=== PATIENT | female | born 1995 | race Caucasian/White ===

== ENCOUNTER 2018-09-02 15:15 | Emergency (ER) | payer OTHER, MEDICAID, SELFPAY ==
[2018-09-02 15:27] VITALS: BP 131/79; PULSE 73; RESP 16; TEMP 37.1; O2SAT 97; BMI 23.6
--- NOTE | 2018-09-02 15:47 | ED.CHESTPAIN ---
HPI - Chest Pain <MARIAMA Puente - Last Filed: 09/02/18 22:28> General Chief Complaint: Chest Pain Stated Complaint: CHEST PAIN Time Seen by Provider: 09/02/18 15:47 Source: patient Mode of arrival: ambulatory Limitations: no limitations History of Present Illness HPI narrative: 22-year-old female with history of anxiety and is a nonsmoker here for complaint of chest pain on and off over the past several months. She denies any trauma to the area. She denies any strenuous activity. She denies any stressors or relievers of her pain. She is recently diagnosed with anxiety and was placed on citalopram a few days ago. She denies any nausea vomiting. No fevers or chills. She denies any other concerns or complaints at this time. She is ambulatory to the emergency shannon ZACARIAS complaint: chest pain Related Data Home Medications Medication Instructions Recorded Confirmed B [id number] acid-Zn [Yaima B #0 09/06/17 Strong] citalopram 20 mg PO DAILY 09/02/18 09/02/18 Previous Rx's Medication Instructions Recorded erythromycin with ethanol [Erygel] 1 mustapha TP SEE INSTRUCTIONS #30 gm 09/06/17 tretinoin [Retin-A] 1 mustapha TOPICAL SEE INSTRUCTIONS #20 09/06/17 gm Allergies Allergy/AdvReac Type Severity Reaction Status Date / Time No Known Drug Allergies Allergy Verified 09/02/18 15:27 Review of Systems <MARIAMA Puente - Last Filed: 09/02/18 22:28> Constitutional Denies chills, Denies fatigue, Denies fever(s), Denies lethargy and Denies weakness Eyes Denies change in vision, Denies eye discharge, Denies irritation and Denies loss of vision ENT Ears, Nose, Mouth, and Throat: Denies change in voice, Denies neck pain and Denies sore throat Cardiovascular Reports chest pain, Denies dyspnea and Denies dyspnea on exertion Respiratory Denies cough, Denies dyspnea, Denies dyspnea on exertion and Denies wheezing Gastrointestinal Gastrointestinal: Denies abdominal pain, Denies change in bowel habits, Denies diarrhea, Denies nausea and Denies vomiting Genitourinary Denies hematuria, Denies flank pain, Denies urinary incontinence and Denies urinary urgency Musculoskeletal Denies neck pain Integumentary/Breasts Denies pruritus, Denies erythema, Denies rash and Denies wounds Neurologic Denies confusion, Denies loss of vision and Denies weakness Psychiatric Denies anxiety, Denies confusion, Denies depression, Denies homicidal ideation and Denies suicidal ideation Endocrine Denies fatigue and Denies flushing Hematologic/Lymphatic Denies easy bruising Allergic/Immunologic Denies wheezing Exam <MARIAMA Puente - Last Filed: 09/02/18 22:28> Initial Vital Signs Initial Vital Signs: Vital Signs Temperature 98.7 F 09/02/18 15:27 Pulse Rate 73 09/02/18 15:27 Respiratory Rate 16 09/02/18 15:27 Blood Pressure 131/79 09/02/18 15:27 Pulse Oximetry 97 09/02/18 15:27 Const General: cooperative and well developed Nutritional Appearance: well nourished Orientation: alert, awake, oriented x3 and not confused HENMA Mouth: oral mucosae normal, oropharynx normal and moist mucous membranes Eyes Conjunctivae: conjunctivae normal Sclera: sclerae normal Pupils: PERRL EOM: EOM intact bilaterally Chest Other: Pain on palpation to the right sternal border area. No signs of trauma. No ecchymosis. No deformities. Resp Effort & Inspection: normal respiratory effort, able to speak in complete sentences, no respiratory distress and no use of accessory muscles Auscultation: clear to auscultation bilaterally, no rales, no rhonchi and no wheezes Cardio Rate: regular rate Rhythm: regular rhythm Heart Sounds: no click, no gallops, no murmurs and no rubs Pulses: normal peripheral pulses Skin General: no rashes or lesions noted, No jaundice and No petechiae Neuro General: alert, oriented x3, gait normal and no focal motor deficits Speech: speech normal <Shruti Donaldson DO - Last Filed: 09/03/18 08:24> Initial Vital Signs Initial Vital Signs: Vital Signs Temperature 98.7 F 09/02/18 15:27 Pulse Rate 73 09/02/18 15:27 Respiratory Rate 16 09/02/18 15:27 Blood Pressure 131/79 09/02/18 15:27 Pulse Oximetry 97 09/02/18 15:27 Course <MARIAMA Puente - Last Filed: 09/02/18 22:28> Orders Ordered: ED Orders 09/02/18 15:27 EKG-12 Lead Stat 09/02/18 16:15 XR chest 1V Stat 09/02/18 16:30 Complete Blood Count AUTO DIFF Stat Comprehensive Metabolic Panel Stat Troponin & CK Cardiac Panel Stat Vital Signs - 8 hr 18 15:27 18 18:06 09/02/18 20:19 Temperature 98.7 F Pulse Rate 73 71 104 H Respiratory Rate 16 16 13 Blood Pressure 131/79 112/66 Blood Pressure [Right Arm] 113/68 Pulse Oximetry 97 99 98 <Shruti Donaldson DO - Last Filed: 09/03/18 08:24> Orders Ordered: ED Orders 09/02/18 15:27 EKG-12 Lead Stat 09/02/18 16:15 XR chest 1V Stat 09/02/18 16:30 Complete Blood Count AUTO DIFF Stat Comprehensive Metabolic Panel Stat Troponin & CK Cardiac Panel Stat Vital Signs - 8 hr 09/02/18 15:27 09/02/18 18:06 09/02/18 20:19 Temperature 98.7 F Pulse Rate 73 71 104 H Respiratory Rate 16 16 13 Blood Pressure 131/79 112/66 Blood Pressure [Right Arm] 113/68 Pulse Oximetry 97 99 98 MDM - Chest Pain <MARIAMA Puente - Last Filed: 09/02/18 22:28> Lab Data Result diagrams: 09/02/18 16:30 09/02/18 16:30 Lab Results 09/02/18 09/02/18 Range/Units 16:30 16:30 WBC 7.7 (4.5-11.0) X10^3/uL RBC 4.51 (4.0-5.2) X10^6/uL Hgb 14.5 (12.0-16.0) g/dL Hct 41.7 (36-46) % MCV 92.4 (80-100) fL MCH 32.1 (26-34) PG MCHC 34.7 (30-36) % RDW 12.2 (11.6-14.8) % Plt Count 269 (150-400) X10^3/uL Neut % (Auto) 61.6 (50-75) % Lymph % (Auto) 27.3 (25-40) % [place] % (Auto) 9.0 (3-14) % Eos % (Auto) 1.4 L (2-4) % Baso % (Auto) 0.7 (0-2) % Neut # (Auto) 4800 (7979-0811) /uL Sodium 143 (137-145) mmol/L Potassium 3.8 (3.4-5.1) mmol/L Chloride 106 (98-107) mmol/L Carbon Dioxide 22 (22-32) mmol/L BUN 12 (7-17) mg/dL Creatinine 0.70 (0.52-1.04) mg/dL Estimated GFR > 60.0 (>60) mL/min BUN/Creatinine Ratio 17.1 (6-22) Glucose 87 (70-100) mg/dL Calcium 9.5 (8.4-10.2) mg/dL Total Bilirubin 0.4 (0.2-1.3) mg/dL AST 31 (14-36) IU/L ALT 28 (9-52) IU/L Alkaline Phosphatase 65 (38-126) U/L Total Creatine Kinase 50 (30-135) U/L CK-MB (CK-2) TNP CK-MB (CK-2) Rel Index TNP Troponin I < 0.012 (0.01-0.034) ng/mL Total Protein 7.5 (6.3-8.2) g/dL Albumin 4.6 (3.5-5.0) g/dL Globulin 2.9 (1.7-4.1) g/dL Albumin/Globulin Ratio 1.6 (1.0-2.8) Point of Care Testing Test Results Negative Urine Dip Bedside Urine Glucose Negative Bedside Urine Bilirubin - Negative Bedside Urine Ketone - Negative Urine Specific [place] 1.015 Bedside Urine Occult Blood - Negative Bedside Urine pH 7.0 Bedside Urine Protein - Negative Bedside Urine Urobilinogen - Negative Bedside Urine Nitrite - Negative Bedside Urine Leukocytes - Negative Esterase Imaging Data Chest x-ray: Radiologist's impression: [address] [address] XRay Report Signed Patient: Nathaly Berrios [facility]#: [id number] : 1995Acct:[id number] Age/Sex: 22 / FDate of Service: 09/02/18 Loc: ED Accession Number: [id number] Procedure: XR chest 1V Ordering Provider: Jose Elias Patel PROCEDURE: XR CHEST 1V INDICATIONS: chest pain on off for last several months TECHNIQUE: One view of the chest was acquired. COMPARISON: None. FINDINGS: Surgical changes and devices: None. Lungs and pleura: No pleural effusions or pneumothorax. Lungs are clear. There is prominence of the pulmonary vasculature bilaterally. Mediastinum: Mediastinal contours appear normal. Heart size is normal. Bones and chest wall: No suspicious bony lesions. Overlying soft tissues appear unremarkable. IMPRESSION: No acute cardiopulmonary disease. Dictated by: Antonio Spencer M.D. on 09/02/2018 at 19:54 Approved by: Antonio Spencer M.D. on 09/02/2018 at 19:55 ECG Data Interpretation: EKG shows normal sinus rhythm with no ST elevation or depression. No ectopy. Ventricular rate of 87. Pr interval of 128. QRS duration of 99. QTC of 406. MDM Narrative Medical decision making narrative: CBC and Chem panel were obtained were unremarkable. EKG shows sinus rhythm with no ST elevation or depression. No ectopy. Chest x-ray was obtained was unremarkable. Cardiac enzymes were negative. Signs and symptoms presents as costochondritis with secondary diagnosis of chest pain secondary to anxiety. Qxeh-cxc-[id number] ibuprofen as needed for any discomfort. Rest area. Follow up with primary care provider. For any worsening symptoms return emergency room. <Shruti Donaldson DO - Last Filed: 09/03/18 08:24> Lab Data Attestation: I reviewed the patient's lab results. Lab Results 09/02/18 09/02/18 Range/Units 16:30 16:30 WBC 7.7 (4.5-11.0) X10^3/uL RBC 4.51 (4.0-5.2) X10^6/uL Hgb 14.5 (12.0-16.0) g/dL Hct 41.7 (36-46) % MCV 92.4 (80-100) fL MCH 32.1 (26-34) PG MCHC 34.7 (30-36) % RDW 12.2 (11.6-14.8) % Plt Count 269 (150-400) X10^3/uL Neut % (Auto) 61.6 (50-75) % Lymph % (Auto) 27.3 (25-40) % [place] % (Auto) 9.0 (3-14) % Eos % (Auto) 1.4 L (2-4) % Baso % (Auto) 0.7 (0-2) % Neut # (Auto) 4800 (3520-6161) /uL Sodium 143 (137-145) mmol/L Potassium 3.8 (3.4-5.1) mmol/L Chloride 106 (98-107) mmol/L Carbon Dioxide 22 (22-32) mmol/L BUN 12 (7-17) mg/dL Creatinine 0.70 (0.52-1.04) mg/dL Estimated GFR > 60.0 (>60) mL/min BUN/Creatinine Ratio 17.1 (6-22) Glucose 87 (70-100) mg/dL Calcium 9.5 (8.4-10.2) mg/dL Total Bilirubin 0.4 (0.2-1.3) mg/dL AST 31 (14-36) IU/L ALT 28 (9-52) IU/L Alkaline Phosphatase 65 (38-126) U/L Total Creatine Kinase 50 (30-135) U/L CK-MB (CK-2) TNP CK-MB (CK-2) Rel Index TNP Troponin I < 0.012 (0.01-0.034) ng/mL Total Protein 7.5 (6.3-8.2) g/dL Albumin 4.6 (3.5-5.0) g/dL Globulin 2.9 (1.7-4.1) g/dL Albumin/Globulin Ratio 1.6 (1.0-2.8) Point of Care Testing Test Results Negative Urine Dip Bedside Urine Glucose Negative Bedside Urine Bilirubin - Negative Bedside Urine Ketone - Negative Urine Specific [place] 1.015 Bedside Urine Occult Blood - Negative Bedside Urine pH 7.0 Bedside Urine Protein - Negative Bedside Urine Urobilinogen - Negative Bedside Urine Nitrite - Negative Bedside Urine Leukocytes - Negative Esterase ECG Data Attestation: I personally reviewed and interpreted this ECG as follows: Prior ECG tracings: not available for review Interpretation: Normal sinus rhythm rate [address] changes or T-wave inversion no prior to compare Discharge Plan Departure Patient Disposition: Home Clinical Impression: Costochondritis Discharge Date/Time: 09/02/18 20:20 Interventions: ED Discharge Assessment Last Done: 09/02/18 20:19 Instructions: DI for Costochondritis Activity Restrictions/Additional Instructions: laboratory results today were unremarkable. She EKG was normal. Chest x-ray was normal. Signs and symptoms presents as costochondritis which is muscle skeletal pain into the chest wall area. Use [id number]-[id number] ibuprofen as needed for any discomfort. Rest area. Gentle range of motion to painful areas of keep muscles loose. Follow up with her primary care provider. Continue taking anxiety medications as anxiety can exacerbate the chest wall pain. for any worsening symptoms return emergency room. Prescriptions: No Action B [id number]-[id number] acid-Zn [Yaima B Strong] 1 EACH tablet Qty: 0 RF: 0 tretinoin [Retin-A] 0.01 % gel 1 mustapha Topical SEE INSTRUCTIONS Qty: 20 RF: 0 erythromycin with ethanol [Erygel] 2 % gel 1 mustapha TP SEE INSTRUCTIONS Qty: 30 RF: 0 citalopram 20 mg Tablet 20 mg PO DAILY RF: 0 Referrals: Suzy Tao PA-C [Primary Care Provider] - <Shruti Donaldson DO - Last Filed: 09/03/18 08:24> Cosign ED Attending Cosignature Attestation: I was immediately available in the department for consultation. Documentation has been reviewed. I agree with assessment and plan.
--- NOTE | 2018-09-02 15:55 | PC.NURSE ---
Pt reports chest pain has been on and off for past few months. Reports pain usually comes after drinking energy drinks but has tried to cut those out. States today Pain started after a cup of coffee while at work and pain has not gone away. Reports at times it radiates across chest into left arm.
--- NOTE | 2018-09-02 16:15 | DI.RAD.S_ITS ---
PROCEDURE: XR CHEST 1V INDICATIONS: chest pain on off for last several months TECHNIQUE: One view of the chest was acquired. COMPARISON: None. FINDINGS: Surgical changes and devices: None. Lungs and pleura: No pleural effusions or pneumothorax. Lungs are clear. There is prominence of the pulmonary vasculature bilaterally. Mediastinum: Mediastinal contours appear normal. Heart size is normal. Bones and chest wall: No suspicious bony lesions. Overlying soft tissues appear unremarkable. IMPRESSION: No acute cardiopulmonary disease. Dictated by: Antonio Spencer M.D. on 09/02/2018 at 19:54 Approved by: Antonio Spencer M.D. on 09/02/2018 at 19:55
[2018-09-02 16:42] LABS: Add Manual Diff / Slide Review NO; Basophils Percent Auto 0.7 % (0-2); Eosinophils Percent Auto 1.4 % (2-4); Hematocrit 41.7 % (36-46); Hemoglobin 14.5 g/dL (12.0-16.0); Lymphocytes Percent Auto 27.3 % (25-40); Mean Corpuscular HGB Conc 34.7 % (30-36); Mean Corpuscular Hemoglobin 32.1 PG (26-34); Mean Corpuscular Volume 92.4 fL (80-100); Neutrophils Absolute Auto 4800 /uL (1500-7000); Neutrophils Percent Auto 61.6 % (50-75); Platelet Count 269 X10^3/uL (150-400); Red Blood Cell Count 4.51 X10^6/uL (4.0-5.2); Red Cell Distribution Width 12.2 % (11.6-14.8); White Blood Cell Count 7.7 X10^3/uL (4.5-11.0)
[2018-09-02 16:52] LABS: Alanine Aminotransferase 28 IU/L (9-52); Albumin 4.6 g/dL (3.5-5.0); Albumin Globulin Ratio 1.6 (1.0-2.8); Alkaline Phosphatase 65 U/L (38-126); Aspartate Aminotransferase 31 IU/L (14-36); BUN Creatinine Ratio 17.1 (6-22); Bilirubin Total 0.4 mg/dL (0.2-1.3); Blood Urea Nitrogen 12 mg/dL (7-17); Calcium 9.5 mg/dL (8.4-10.2); Carbon Dioxide 22 mmol/L (22-32); Chloride 106 mmol/L (98-107); Creatine Kinase 50 U/L (30-135); Estimated Glomerular Filt Rate > 60.0 mL/min (>60); Globulin 2.9 g/dL (1.7-4.1); Glucose 87 mg/dL (70-100); HEMOLYSIS 22 (0-50); Potassium 3.8 mmol/L (3.4-5.1); Sodium 143 mmol/L (137-145); Total Protein 7.5 g/dL (6.3-8.2)
[2018-09-02 17:10] LABS: Troponin I < 0.012 ng/mL (0.01-0.034)
--- NOTE | 2018-09-02 17:22 | ED_ITS ---
HPI - Chest Pain <MARIAMA Puente - Last Filed: 09/02/18 22:28> General Chief Complaint: Chest Pain Stated Complaint: CHEST PAIN Time Seen by Provider: 09/02/18 15:47 Source: patient Mode of arrival: ambulatory Limitations: no limitations History of Present Illness HPI narrative: 22-year-old female with history of anxiety and is a nonsmoker here for complaint of chest pain on and off over the past several months. She denies any trauma to the area. She denies any strenuous activity. She denies any stressors or relievers of her pain. She is recently diagnosed with anxiety and was placed on citalopram a few days ago. She denies any nausea vomiting. No fevers or chills. She denies any other concerns or complaints at this time. She is ambulatory to the emergency shannon [facility] complaint: chest pain Related Data Home Medications Medication Instructions Recorded Confirmed B [id number] acid-Zn [Yaima B #0 09/06/17 Strong] citalopram 20 mg PO DAILY 09/02/18 09/02/18 Previous Rx's Medication Instructions Recorded erythromycin with ethanol [Erygel] 1 mustapha TP SEE INSTRUCTIONS #30 gm 09/06/17 tretinoin [Retin-A] 1 mustapha TOPICAL SEE INSTRUCTIONS #20 09/06/17 gm Allergies Allergy/AdvReac Type Severity Reaction Status Date / Time No Known Drug Allergies Allergy Verified 09/02/18 15:27 Review of Systems <MARIAMA Puente - Last Filed: 09/02/18 22:28> Constitutional Denies chills, Denies fatigue, Denies fever(s), Denies lethargy and Denies weakness Eyes Denies change in vision, Denies eye discharge, Denies irritation and Denies loss of vision ENT Ears, Nose, Mouth, and Throat: Denies change in voice, Denies neck pain and Denies sore throat Cardiovascular Reports chest pain, Denies dyspnea and Denies dyspnea on exertion Respiratory Denies cough, Denies dyspnea, Denies dyspnea on exertion and Denies wheezing Gastrointestinal Gastrointestinal: Denies abdominal pain, Denies change in bowel habits, Denies diarrhea, Denies nausea and Denies vomiting Genitourinary Denies hematuria, Denies flank pain, Denies urinary incontinence and Denies urinary urgency Musculoskeletal Denies neck pain Integumentary/Breasts Denies pruritus, Denies erythema, Denies rash and Denies wounds Neurologic Denies confusion, Denies loss of vision and Denies weakness Psychiatric Denies anxiety, Denies confusion, Denies depression, Denies homicidal ideation and Denies suicidal ideation Endocrine Denies fatigue and Denies flushing Hematologic/Lymphatic Denies easy bruising Allergic/Immunologic Denies wheezing Exam <MARIAMA Puente - Last Filed: 09/02/18 22:28> Initial Vital Signs Initial Vital Signs: Vital Signs Temperature 98.7 F 09/02/18 15:27 Pulse Rate 73 09/02/18 15:27 Respiratory Rate 16 09/02/18 15:27 Blood Pressure 131/79 09/02/18 15:27 Pulse Oximetry 97 09/02/18 15:27 Const General: cooperative and well developed Nutritional Appearance: well nourished Orientation: alert, awake, oriented x3 and not confused HENOH Mouth: oral mucosae normal, oropharynx normal and moist mucous membranes Eyes Conjunctivae: conjunctivae normal Sclera: sclerae normal Pupils: PERRL EOM: EOM intact bilaterally Chest Other: Pain on palpation to the right sternal border area. No signs of trauma. No ecchymosis. No deformities. Resp Effort & Inspection: normal respiratory effort, able to speak in complete sentences, no respiratory distress and no use of accessory muscles Auscultation: clear to auscultation bilaterally, no rales, no rhonchi and no wheezes Cardio Rate: regular rate Rhythm: regular rhythm Heart Sounds: no click, no gallops, no murmurs and no rubs Pulses: normal peripheral pulses Skin General: no rashes or lesions noted, No jaundice and No petechiae Neuro General: alert, oriented x3, gait normal and no focal motor deficits Speech: speech normal <Shruti Donaldson DO - Last Filed: 09/03/18 08:24> Initial Vital Signs Initial Vital Signs: Vital Signs Temperature 98.7 F 09/02/18 15:27 Pulse Rate 73 09/02/18 15:27 Respiratory Rate 16 09/02/18 15:27 Blood Pressure 131/79 09/02/18 15:27 Pulse Oximetry 97 09/02/18 15:27 Course <MARIAMA Puente - Last Filed: 09/02/18 22:28> Orders Ordered: ED Orders 09/02/18 15:27 EKG-12 Lead Stat 09/02/18 16:15 XR chest 1V Stat 09/02/18 16:30 Complete Blood Count AUTO DIFF Stat Comprehensive Metabolic Panel Stat Troponin & CK Cardiac Panel Stat Vital Signs - 8 hr 18 15:27 18 18:06 09/02/18 20:19 Temperature 98.7 F Pulse Rate 73 71 104 H Respiratory Rate 16 16 13 Blood Pressure 131/79 112/66 Blood Pressure [Right Arm] 113/68 Pulse Oximetry 97 99 98 <Shruti Donaldson DO - Last Filed: 09/03/18 08:24> Orders Ordered: ED Orders 09/02/18 15:27 EKG-12 Lead Stat 09/02/18 16:15 XR chest 1V Stat 09/02/18 16:30 Complete Blood Count AUTO DIFF Stat Comprehensive Metabolic Panel Stat Troponin & CK Cardiac Panel Stat Vital Signs - 8 hr 09/02/18 15:27 09/02/18 18:06 09/02/18 20:19 Temperature 98.7 F Pulse Rate 73 71 104 H Respiratory Rate 16 16 13 Blood Pressure 131/79 112/66 Blood Pressure [Right Arm] 113/68 Pulse Oximetry 97 99 98 MDM - Chest Pain <MARIAMA Puente - Last Filed: 09/02/18 22:28> Lab Data Result diagrams: 09/02/18 16:30 09/02/18 16:30 Lab Results 09/02/18 09/02/18 Range/Units 16:30 16:30 WBC 7.7 (4.5-11.0) X10^3/uL RBC 4.51 (4.0-5.2) X10^6/uL Hgb 14.5 (12.0-16.0) g/dL Hct 41.7 (36-46) % MCV 92.4 (80-100) fL MCH 32.1 (26-34) PG MCHC 34.7 (30-36) % RDW 12.2 (11.6-14.8) % Plt Count 269 (150-400) X10^3/uL Neut % (Auto) 61.6 (50-75) % Lymph % (Auto) 27.3 (25-40) % Kane % (Auto) 9.0 (3-14) % Eos % (Auto) 1.4 L (2-4) % Baso % (Auto) 0.7 (0-2) % Neut # (Auto) 4800 (8020-8534) /uL Sodium 143 (137-145) mmol/L Potassium 3.8 (3.4-5.1) mmol/L Chloride 106 (98-107) mmol/L Carbon Dioxide 22 (22-32) mmol/L BUN 12 (7-17) mg/dL Creatinine 0.70 (0.52-1.04) mg/dL Estimated GFR > 60.0 (>60) mL/min BUN/Creatinine Ratio 17.1 (6-22) Glucose 87 (70-100) mg/dL Calcium 9.5 (8.4-10.2) mg/dL Total Bilirubin 0.4 (0.2-1.3) mg/dL AST 31 (14-36) IU/L ALT 28 (9-52) IU/L Alkaline Phosphatase 65 (38-126) U/L Total Creatine Kinase 50 (30-135) U/L CK-MB (CK-2) TNP CK-MB (CK-2) Rel Index TNP Troponin I < 0.012 (0.01-0.034) ng/mL Total Protein 7.5 (6.3-8.2) g/dL Albumin 4.6 (3.5-5.0) g/dL Globulin 2.9 (1.7-4.1) g/dL Albumin/Globulin Ratio 1.6 (1.0-2.8) Point of Care Testing Test Results Negative Urine Dip Bedside Urine Glucose Negative Bedside Urine Bilirubin - Negative Bedside Urine Ketone - Negative Urine Specific [place] 1.015 Bedside Urine Occult Blood - Negative Bedside Urine pH 7.0 Bedside Urine Protein - Negative Bedside Urine Urobilinogen - Negative Bedside Urine Nitrite - Negative Bedside Urine Leukocytes - Negative Esterase Imaging Data Chest x-ray: Radiologist's impression: [address] [id number] XRay Report Signed Patient: Nathaly Berrios [facility] [place]#: [id number] : 1995Acct:[id number] Age/Sex: 22 / FDate of Service: 09/02/18 Loc: ED Accession Number: [id number] Procedure: XR chest 1V Ordering Provider: Jose Elias Patel PROCEDURE: XR CHEST 1V INDICATIONS: chest pain on off for last several months TECHNIQUE: One view of the chest was acquired. COMPARISON: None. FINDINGS: Surgical changes and devices: None. Lungs and pleura: No pleural effusions or pneumothorax. Lungs are clear. There is prominence of the pulmonary vasculature bilaterally. Mediastinum: Mediastinal contours appear normal. Heart size is normal. Bones and chest wall: No suspicious bony lesions. Overlying soft tissues appear unremarkable. IMPRESSION: No acute cardiopulmonary disease. Dictated by: Antonio Spencer M.D. on 09/02/2018 at 19:54 Approved by: Antonio Spencer M.D. on 09/02/2018 at 19:55 ECG Data Interpretation: EKG shows normal sinus rhythm with no ST elevation or depression. No ectopy. Ventricular rate of 87. Pr interval of 128. QRS duration of 99. QTC of 406. MDM Narrative Medical decision making narrative: CBC and Chem panel were obtained were unremarkable. EKG shows sinus rhythm with no ST elevation or depression. No ectopy. Chest x-ray was obtained was unremarkable. Cardiac enzymes were negative. Signs and symptoms presents as costochondritis with secondary diagnosis of chest pain secondary to anxiety. Vkoo-ikm-vddndol ibuprofen as needed for any discomfort. Rest area. Follow up with primary care provider. For any worsening symptoms return emergency room. <Shruti Donaldson DO - Last Filed: 09/03/18 08:24> Lab Data Attestation: I reviewed the patient's lab results. Lab Results 09/02/18 09/02/18 Range/Units 16:30 16:30 WBC 7.7 (4.5-11.0) X10^3/uL RBC 4.51 (4.0-5.2) X10^6/uL Hgb 14.5 (12.0-16.0) g/dL Hct 41.7 (36-46) % MCV 92.4 (80-100) fL MCH 32.1 (26-34) PG MCHC 34.7 (30-36) % RDW 12.2 (11.6-14.8) % Plt Count 269 (150-400) X10^3/uL Neut % (Auto) 61.6 (50-75) % Lymph % (Auto) 27.3 (25-40) % Kane % (Auto) 9.0 (3-14) % Eos % (Auto) 1.4 L (2-4) % Baso % (Auto) 0.7 (0-2) % Neut # (Auto) 4800 (8347-8498) /uL Sodium 143 (137-145) mmol/L Potassium 3.8 (3.4-5.1) mmol/L Chloride 106 (98-107) mmol/L Carbon Dioxide 22 (22-32) mmol/L BUN 12 (7-17) mg/dL Creatinine 0.70 (0.52-1.04) mg/dL Estimated GFR > 60.0 (>60) mL/min BUN/Creatinine Ratio 17.1 (6-22) Glucose 87 (70-100) mg/dL Calcium 9.5 (8.4-10.2) mg/dL Total Bilirubin 0.4 (0.2-1.3) mg/dL AST 31 (14-36) IU/L ALT 28 (9-52) IU/L Alkaline Phosphatase 65 (38-126) U/L Total Creatine Kinase 50 (30-135) U/L CK-MB (CK-2) TNP CK-MB (CK-2) Rel Index TNP Troponin I < 0.012 (0.01-0.034) ng/mL Total Protein 7.5 (6.3-8.2) g/dL Albumin 4.6 (3.5-5.0) g/dL Globulin 2.9 (1.7-4.1) g/dL Albumin/Globulin Ratio 1.6 (1.0-2.8) Point of Care Testing Test Results Negative Urine Dip Bedside Urine Glucose Negative Bedside Urine Bilirubin - Negative Bedside Urine Ketone - Negative Urine Specific [place] 1.015 Bedside Urine Occult Blood - Negative Bedside Urine pH 7.0 Bedside Urine Protein - Negative Bedside Urine Urobilinogen - Negative Bedside Urine Nitrite - Negative Bedside Urine Leukocytes - Negative Esterase ECG Data Attestation: I personally reviewed and interpreted this ECG as follows: Prior ECG tracings: not available for review Interpretation: Normal sinus rhythm rate [address] changes or T-wave inversion no prior to compare Discharge Plan Departure Patient Disposition: Home Clinical Impression: Costochondritis Discharge Date/Time: 09/02/18 20:20 Interventions: ED Discharge Assessment Last Done: 09/02/18 20:19 Instructions: DI for Costochondritis Activity Restrictions/Additional Instructions: laboratory results today were unremarkable. She EKG was normal. Chest x-ray was normal. Signs and symptoms presents as costochondritis which is muscle skeletal pain into the chest wall area. Use [id number] ibuprofen as needed for any discomfort. Rest area. Gentle range of motion to painful areas of keep muscles loose. Follow up with her primary care provider. Continue taking anxiety medications as anxiety can exacerbate the chest wall pain. for any worsening symptoms return emergency room. Prescriptions: No Action B [id number] acid-Zn [Yaima B Strong] 1 EACH tablet Qty: 0 RF: 0 tretinoin [Retin-A] 0.01 % gel 1 mustapha Topical SEE INSTRUCTIONS Qty: 20 RF: 0 erythromycin with ethanol [Erygel] 2 % gel 1 mustapha TP SEE INSTRUCTIONS Qty: 30 RF: 0 citalopram 20 mg Tablet 20 mg PO DAILY RF: 0 Referrals: Suzy Tao PA-C [Primary Care Provider] - <Shruti Donaldson DO - Last Filed: 09/03/18 08:24> Cosign ED Attending Cosignature Attestation: I was immediately available in the department for consultation. Documentation has been reviewed. I agree with assessment and plan.
[2018-09-02 18:06] VITALS: BP 113/68; PULSE 71; RESP 16; O2SAT 99
[2018-09-02 20:19] VITALS: BP 112/66; PULSE 104; RESP 13; O2SAT 98
== END 2018-09-02 20:20 | disposition home or self-care (01) ==
PROVIDERS: Emergency Provider Nurse Practitioner Family; PCP Physician Assistant
DX: M94.0 Chondrocostal junction syndrome [Tietze] (principal)
CPT/HCPCS: 36591; 71045; 80053; 81003; 81025; 82550; 84484; 85025; 93005; 93010; 99282; 99285